=== PATIENT | male | born 1940 | race Caucasian/White ===

== ENCOUNTER 2016-11-20 15:26 | Inpatient (IN) | payer MEDICARE, OTHER ==
--- NOTE | 2016-11-20 15:59 | ER Document Report ---
ED Medical Screen (RME) - General Chief Complaint: Fever Stated Complaint: FEVER Notes: 76-year-old male patient of colectomy earlier this year for polyps and diverticulitis. He developed postop abscess and then later October had CT-guided abscess drainage. Discharged from the hospital on 10/30/2016. Now with 2 day history of urinary incontinence and onset today of fever and chills. He denies any new pain in his abdomen or pelvis. I have greeted and performed a rapid initial assessment of this patient. A comprehensive ED assessment and evaluation of the patient, analysis of test results and completion of the medical decision making process will be conducted by additional ED providers. TRAVEL OUTSIDE OF THE [place] IN LAST 30 DAYS: No - Related Data Allergies/Adverse Reactions: Penicillins Allergy (Verified 11/20/16 15:54) Past Medical History Renal/ Medical History: Denies: Hx Peritoneal Dialysis Physical Exam - Vital signs Vitals: Temp Pulse Resp BP Pulse Ox 99.8 F 110 H 22 H 136/84 H 95 11/20/16 15:35 11/20/16 15:35 11/20/16 15:35 11/20/16 15:35 11/20/16 15:35 Course - Vital Signs Vital signs: Temp Pulse Resp BP Pulse Ox 99.8 F 110 H 22 H 136/84 H 95 11/20/16 15:35 11/20/16 15:35 11/20/16 15:35 11/20/16 15:35 11/20/16 15:35
[2016-11-20 16:56] LABS: HEMATOCRIT 33.6 % (37.9-51.0); HEMOGLOBIN 11.3 g/dL (13.5-17.0); HGB HCT DIFFERENCE 0.3; MEAN CORPUSCULAR HGB CONC 33.5 g/dL (32.0-36.0); MEAN CORPUSCULAR VOLUME 84 fl (80-97); RED BLOOD COUNT 4.02 10^6/uL (4.35-5.55); RED CELL DISTRIBUTION WIDTH 16.3 % (11.5-14.0); WHITE BLOOD COUNT 16.3 10^3/uL (4.0-10.5)
[2016-11-20 16:58] LABS: PROTHROMBIN TIME 29.1 SEC (11.4-15.4)
[2016-11-20 16:59] LABS: APPEARANCE,URINE CLOUDY; BILIRUBIN,URINE NEGATIVE (NEGATIVE); GLUCOSE, URINE 50 mg/dL (NEGATIVE); KETONES,URINE NEGATIVE (NEGATIVE); LEUKOCYTE ESTERASE,URINE LARGE (NEGATIVE); NITRITE,URINE POSITIVE (NEGATIVE); PROTEIN,URINE 100 mg/dL (NEGATIVE); URINE SPECIFIC GRAVITY 1.019; UROBILINOGEN,URINE NEGATIVE mg/dL (<2.0)
[2016-11-20] MEDS ORDERED: NORMAL SALINE 1000 ML 1,000 ML IV ONE (17:10)
--- NOTE | 2016-11-20 17:13 | ER Document Report ---
ED General - General Chief Complaint: Fever Stated Complaint: FEVER Notes: Patient says he's been feeling chills and his temperature has been elevated since about noon today. Temperature is gone up as high as 101. Patient has no other symptoms except sweating heavily. He traveled here from [place] in a 2 day trip, arriving Thursday. Since then, he has felt tired but no other symptoms. Patient underwent a colectomy on September 26 for removal of polyps and diverticulosis/diverticulitis. He developed an abscess and had a drainage tube placed in the right abdomen on October 22. He was treated with antibiotics as well. He was felt to be doing well enough that the drainage tube was removed and the antibiotics were stopped on October 30. He has not had any significant nausea or vomiting. Has had diarrhea with the diverticulitis over the years. Has not seen any blood in his stools. Patient has had some urinary incontinence last night and the night before. No cold or cough or chest congestion. TRAVEL OUTSIDE OF THE [place] IN LAST 30 DAYS: No - Related Data Allergies/Adverse Reactions: Penicillins Allergy (Verified 11/23/16 02:38) swelling Home Medications: Current Home Medications Aspirin [Aspirin 81 mg Chewable Tablet] 81 mg PO DAILY 11/20/16 [History] Atorvastatin Calcium [Lipitor 20 mg Tablet] 20 mg PO DAILY 11/20/16 [History] Digoxin [Lanoxin] 250 mcg PO DAILY 11/20/16 [History] Exenatide [Byetta] 10 mcg SUBCUT BIDACBS 11/20/16 [History] Finasteride [Proscar 5 mg Tablet] 5 mg PO DAILY 11/20/16 [History] Lisinopril [Prinivil] 20 mg PO DAILY 11/20/16 [History] Metformin HCl [Glucophage] 1,000 mg PO BID 11/20/16 [History] Metoprolol Tartrate [Lopressor 25 mg Tablet] 25 mg PO Q12 11/20/16 [History] Multivitamin [Tab-A-Sean (Multiple Vitamin) Tablet] 1 tab PO DAILY 11/20/16 [ History] Quetiapine Fumarate [Seroquel Xr] 150 mg PO QHS 11/20/16 [History] Venlafaxine HCl ER [Effexor Xr 75 mg Cap.sr] 75 mg PO DAILY 11/20/16 [History] Warfarin Sodium [Coumadin 5 mg Tablet] 5 mg PO QHS 11/20/16 [History] Past Medical History - Social History Smoking Status: Unknown if Ever Smoked Cigarette use (# per day): No Family History: Reviewed & Not Pertinent Patient has suicidal ideation: No Patient has homicidal ideation: No - Past Medical History Cardiac Medical History: Reports: Hx Atrial Fibrillation, Hx Hypercholesterolemia, Hx Hypertension Endocrine Medical History: Reports: Hx Diabetes Mellitus Type 2 GI Medical History: Reports: Hx Diverticulitis Past Surgical History: Reports: Other - Colectomy, September 26 Review of Systems - Review of Systems Notes: REVIEW OF SYSTEMS: CONSTITUTIONAL : See history of present illness. Has fever and chills. EENT: Denies eye, ear, nose or mouth or throat pain or other symptoms. CARDIOVASCULAR: Denies chest pain. RESPIRATORY: Denies cough, chest congestion, or shortness of breath. GASTROINTESTINAL: Denies abdominal pain or nausea, vomiting, or diarrhea. GENITOURINARY: Denies difficulty or painful urinating, urinary frequency, blood in urine. 2 episodes of urinary incontinence. MUSCULOSKELETAL: Denies back or neck pain. Denies joint pain or swelling. SKIN: Denies rash or skin lesions. NEUROLOGICAL: Denies LOC or altered mental status. Denies headache. Denies sensory loss or motor deficits. ALL OTHER SYSTEMS REVIEWED AND NEGATIVE. Physical Exam - Vital signs Vitals: Temp Pulse Resp BP Pulse Ox 99.8 F 110 H 22 H 136/84 H 100 11/20/16 15:31 11/20/16 15:31 11/20/16 15:31 11/20/16 15:31 11/20/16 15:31 Interpretation: Normal, Tachycardic - Slight. No: Hypoxic - Notes Notes: PHYSICAL EXAMINATION: GENERAL: Well-appearing, in no acute distress. Moderately diaphoretic. Vital signs are all normal except for heart rate of 110. O2 sat 95%. HEAD: Atraumatic, normocephalic.s. NECK: Normal range of motion, supple. LUNGS: Breath sounds clear and equal bilaterally. HEART: Regular rate and rhythm without murmurs. ABDOMEN: Soft, nontender. No guarding or rebound. Scarring from previous laparoscopic surgery entry sites. BACK: No tenderness throughout entire back. No CVA percussion tenderness on either side. EXTREMITIES: Normal range of motion without pain. NEUROLOGICAL: Normal speech, normal gait. Normal sensory, motor, and reflex exams. Awake, alert, and oriented x3. Cranial nerves normal. PSYCH: Normal mood, normal affect. SKIN: Warm, dry, no rashes. Course - Re-evaluation Re-evalutation: 11/20/16 19:08 Lab results reviewed. Patient appears to have a urinary infection. 1 g of Rocephin IV was ordered. Plan to talk with the hospitalist about admitting patient. - Vital Signs Vital signs: Temp Pulse Resp BP Pulse Ox 98.2 F 85 17 153/92 H 99 11/23/16 11:17 11/23/16 11:17 11/23/16 11:17 11/23/16 11:17 11/23/16 11:17 - Laboratory Result Diagrams: 11/22/16 13:55 11/20/16 16:15 Laboratory results interpreted by me: 11/20/16 11/20/16 11/20/16 16:15 16:15 16:15 WBC 16.3 H RBC 4.02 L Hgb 11.3 L Hct 33.6 L RDW 16.3 H Seg Neuts % (Manual) 92 H Band Neutrophils % 1 L Lymphocytes % (Manual) 3 L Monocytes % (Manual) Metamyelocytes % 1 H Abs Neuts (Manual) 15.3 H PT 29.1 H Sodium 134.0 L Chloride 93 L Glucose 217 H POC Glucose Lactic Acid Direct Bilirubin 0.5 H Urine Protein Urine Glucose (UA) Urine Blood Urine Nitrite Ur Leukocyte Esterase 11/20/16 11/20/16 11/21/16 16:15 19:25 00:05 WBC RBC Hgb Hct RDW Seg Neuts % (Manual) Band Neutrophils % Lymphocytes % (Manual) Monocytes % (Manual) Metamyelocytes % Abs Neuts (Manual) PT Sodium Chloride Glucose POC Glucose Lactic Acid 3.4 H 12.8 H Direct Bilirubin Urine Protein 100 H Urine Glucose (UA) 50 H Urine Blood MODERATE H Urine Nitrite POSITIVE H Ur Leukocyte Esterase LARGE H 11/21/16 11/21/16 11/21/16 06:21 06:21 06:50 WBC 24.3 H RBC 3.50 L Hgb 9.7 L Hct 29.2 L RDW 16.0 H Seg Neuts % (Manual) 90 H Band Neutrophils % Lymphocytes % (Manual) 3 L Monocytes % (Manual) 2 L Metamyelocytes % Abs Neuts (Manual) 22.8 H PT 31.9 H Sodium Chloride Glucose POC Glucose 190 H Lactic Acid Direct Bilirubin Urine Protein Urine Glucose (UA) Urine Blood Urine Nitrite Ur Leukocyte Esterase 11/21/16 11/21/16 11/21/16 11:22 15:50 21:37 WBC RBC Hgb Hct RDW Seg Neuts % (Manual) Band Neutrophils % Lymphocytes % (Manual) Monocytes % (Manual) Metamyelocytes % Abs Neuts (Manual) PT Sodium Chloride Glucose POC Glucose 285 H 260 H 187 H Lactic Acid Direct Bilirubin Urine Protein Urine Glucose (UA) Urine Blood Urine Nitrite Ur Leukocyte Esterase 11/22/16 11/22/16 11/22/16 05:50 05:50 11:25 WBC RBC Hgb Hct RDW Seg Neuts % (Manual) Band Neutrophils % Lymphocytes % (Manual) Monocytes % (Manual) Metamyelocytes % Abs Neuts (Manual) PT 32.5 H Sodium Chloride Glucose POC Glucose 149 H 272 H Lactic Acid Direct Bilirubin Urine Protein Urine Glucose (UA) Urine Blood Urine Nitrite Ur Leukocyte Esterase 11/22/16 11/22/16 11/22/16 13:55 16:17 21:30 WBC 15.7 H RBC 3.36 L Hgb 9.5 L Hct 28.2 L RDW 15.9 H Seg Neuts % (Manual) 85 H Band Neutrophils % Lymphocytes % (Manual) 5 L Monocytes % (Manual) Metamyelocytes % Abs Neuts (Manual) 14.0 H PT Sodium Chloride Glucose POC Glucose 265 H 139 H Lactic Acid Direct Bilirubin Urine Protein Urine Glucose (UA) Urine Blood Urine Nitrite Ur Leukocyte Esterase 11/23/16 11/23/16 04:55 06:25 WBC RBC Hgb Hct RDW Seg Neuts % (Manual) Band Neutrophils % Lymphocytes % (Manual) Monocytes % (Manual) Metamyelocytes % Abs Neuts (Manual) PT 28.5 H Sodium Chloride Glucose POC Glucose 197 H Lactic Acid Direct Bilirubin Urine Protein Urine Glucose (UA) Urine Blood Urine Nitrite Ur Leukocyte Esterase Discharge - Discharge Clinical Impression: UTI (urinary tract infection) Qualifiers: Urinary tract infection type: acute cystitis Condition: Fair Disposition: ADMITTED INPATIENT
[2016-11-20 17:17] LABS: ALANINE AMINOTRANSFERASE 30 U/L (21-72); ALBUMIN 3.6 g/dL (3.5-5.0); ALKALINE PHOSPHATASE 103 U/L (38-126); ANION GAP 17 (5-19); ASPARTATE AMINO TRANSFERASE 26 U/L (17-59); BILIRUBIN,DIRECT 0.5 mg/dL (0.0-0.4); BLOOD UREA NITROGEN 16 mg/dL (7-20); CALCIUM 9.9 mg/dL (8.4-10.2); CARBON DIOXIDE 24 mmol/L (22-30); CHLORIDE 93 mmol/L (98-107); CREATININE RESULT 0.69 mg/dL (0.52-1.25); DIGOXIN 1.05 ng/mL (0.8-2.0); GLUCOSE 217 mg/dL (75-110); POTASSIUM 4.3 mmol/L (3.6-5.0); TOTAL PROTEIN 6.6 g/dL (6.3-8.2)
[2016-11-20 17:18] LABS: BAND NEUTROPHILS % (MANUAL) 1 % (3-5); BASOPHILS % (MANUAL) 0 % (0-2); EOSINOPHILS % (MANUAL) 0 % (0-6); LYMPHOCYTES % (MANUAL) 3 % (13-45); TOTAL CELLS COUNTED 100
[2016-11-20 17:22] LABS: ANISOCYTOSIS 1+; OVALOCYTES SLIGHT; POIKILOCYTOSIS SLIGHT; TOXIC GRANULATION SLIGHT
[2016-11-20] MEDS ORDERED: CEFTRIAXONE 1 GM/D5W RTU 50 ML IV ONE (18:27)
--- NOTE | 2016-11-20 20:06 | EKG REPORT ---
SEVERITY:- ABNORMAL ECG - ATRIAL FIBRILLATION RIGHT BUNDLE BRANCH BLOCK : Confirmed by: Olga Ta MD 20-Nov-2016 20:05:42
[2016-11-20] MEDS ORDERED: GLUCAGON,HUMAN RECOMB 1 MG INJ IM PRN (20:39)
[2016-11-20] MEDS ORDERED: DEXTROSE 40% GEL 15 GM TUBE PO PRN ×2 (20:39)
[2016-11-20] MEDS ORDERED: DEXTROSE 50%-WATER 25 GM/50 ML DISP.SYRIN IV PRN ×2 (20:39)
--- NOTE | 2016-11-20 21:04 | PDOC H&P ---
History of Present Illness Admission Date/PCP: PCP-[facility]; lives in [facility]. Patient complains of: fever History of Present Illness: ANAMARIA DEJESUS is a 76 year old male, with underlying atrial fibrillation, on Coumadin for same, mild occasional reflux, easy bruising, anxiety and depression, without suicidal or homicidal ideation, and type II diabetes mellitus, along with hyperlipidemia, who presents to the emergency room for evaluation of above complaint. Patient has been discussed with emergency room physician who evaluated the patient. He and traveled over the last 2 days from [place] to be with her mother. felt tired during that time span. However, starting at noon today, he developed a fever up to 101.0, with heavy sweating. History of Occasional mild urinary incontinence, which happened 2 today. No nausea vomiting, chest or abdominal pain. Does have underlying prostatic hypertrophy, on finasteride for same. Chronic intermittent diarrhea. He is status post segmental colectomy for removal of polyps and history of diverticulosis and diverticulitis in late September of this year. Postoperatively, developed an abscess which required insertion of a drain along with IV antibiotics. Antibiotics were completed and drain was removed on October 30 and he has done well until the above events. Currently resting quietly, stating he feels a bit better.. Laboratory results are listed in [facility] and are reviewed. No old labs available for review. X-ray summary results are listed below, with full report(s) reviewed. . EKG reviewed. No prior EKG available for review. Social history/personal habits: . No children. Retired. No use of alcohol tobacco or illicit drugs. Allergies/adverse reactions are listed in [facility] and are reviewed. Penicillin reaction occurred as a child, resulting in swelling. No problems with Rocephin in the emergency room. Home medications Home medications initially autopopulated into [employer] may not accurately reflect patient's true medications, dosages, and/or frequencies. voip network technician to reconcile medications. Unfortunately, patient uncertain of all medications/dosages/frequencies. REVIEW OF SYSTEMS: Constitutional: See history and present illness. Eyes: Wears glasses. ENT: No swallowing problems or complaints. No hearing problems or complaints. Pulmonary: No current complaints. Cardiovascular: No current complaints, including chest pain. Gastrointestinal: No current complaints, including nausea or vomiting. Skin: No current complaints, including rashes. Hematologic: Easy bruising. Neurologic: No current complaints, including numbness or tingling. Musculoskeletal: No current complaints, including painful joints. Psychiatric: Mild Anxiety depression; denies suicidal or homicidal ideation. Endocrine: No current complaints, including polyuria. Genitourinary: See history and present illness. PHYSICAL EXAMINATION: 6 feet 2 inches tall. 79.6 kg. BMI 22.5 kg/m.Temperature 97.4. Pulse 66 and regular. Blood pressure 109/52. Respirations are 18 and unlabored. 98% saturation on room air. Thin otherwise well-developed elderly male appearing approximately his stated age. Pleasant awake alert and cooperative. Mildly anxious, but no agitation. is present at his side; patient approves. Skin is warm and dry. No grossly obvious evidence of rash in areas of skin examined. No subcutaneous nodules palpated. ENT: Hearing grossly normal to normal conversation. Tongue midline on protrusion pink and slightly tacky. Eyes: No scleral icterus. Pupils equal and reactive to light at 4 mm. [place] conjunctivae. Neck is supple and nontender to gentle active range of motion and palpation. Midline trachea. No palpable thyroid nodule mass enlargement or tenderness. Lymphatic: No palpable cervical or clavicular nodes. Neck and lymphatic exams limited by patient body habitus. Psychiatric: Reasonable insight into acute and chronic medical issues. Oriented to time location and why here. Lungs: Auscultation reveals clear and equal breath sounds bilaterally. No use of accessory respiratory muscles. Cardiovascular: Heart regular rate and rhythm, without gallop murmur or rub. No carotid or abdominal aortic bruits. No ankle or pedal edema. Abdomen: soft, slightly, distended nontender with positive bowel sounds. Unable to adequately evaluate abdomen for masses or organomegaly due to distention. Extremities: Feet are warm and dry. No calf tenderness to compression. No grossly obvious visual evidence of calf swelling. Gentle manipulation of lower extremities fails to reveal any obvious evidence of injury or instability to knees hips or ankles. Neurologic: Moves upper extremities grossly normally. Patellar reflexes absent. Dorsiflexion and plantarflexion of feet 5 / 5 and symmetric. Past Medical History Cardiac Medical History: Reports: Atrial Fibrillation, Hyperlipidema, Hypertension Denies: Congestive Heart Failure, DVT, Myocardial Infarction, Pulmonary Embolism Pulmonary Medical History: Denies: Asthma, Chronic Obstructive Pulmonary Disease (COPD) Neurological Medical History: Denies: Hemorrhagic CVA, Ischemic CVA, Seizures Endocrine Medical History: Reports: Diabetes Mellitus Type 2 Denies: Diabetes Mellitus Type 1, Hyperthyroidism, Hypothyroidism Renal/ Medical History: Reports: Other - Prostatic hypertrophy GI Medical History: Reports: Diverticulitis, Gastroesophageal Reflux Disease Denies: Cirrhosis, Hepatitis, Peptic Ulcer Disease Musculoskeltal Medical History: Denies: Arthritis Skin Medical History: Reports: None Psychiatric Medical History: Reports: Depression, General Anxiety Disorder Denies: Alcohol Dependency, Substance Abuse, Tobacco Dependency Hematology: Reports: Other - Easy bruising Infectious Medical History: Denies: Hepatitis B, Hepatitis C Past Surgical History Past Surgical History: Reports: Other - Segmental Colectomy, incidental appendectomy September 26, 2016 Social History Information Source: Patient, Emergency Med Personnel, [facility] Records Lives with: Spouse/Significant other Smoking Status: Unknown if Ever Smoked Frequency of Alcohol Use: None Drugs: None - Advance Directive Resuscitation Status: Full Code Surrogate healthcare decision maker:: Family History Family History: Other - Alzheimer's disease, dementia Parental Family History Reviewed: Yes - father of Alzheimer's disease. Mother of complications of tj Children Family History Reviewed: NA Sibling(s) Family History Reviewed.: Yes - Brother is healthy Medication/Allergy Home Medications: Aspirin [Aspirin 81 mg Chewable Tablet] 81 mg PO DAILY 11/20/16 Atorvastatin Calcium [Lipitor 20 mg Tablet] 20 mg PO DAILY 11/20/16 Digoxin [Lanoxin] 250 mcg PO DAILY 11/20/16 Exenatide [Byetta] 10 mcg SUBCUT BIDACBS 11/20/16 Finasteride [Proscar 5 mg Tablet] 5 mg PO DAILY 11/20/16 Lisinopril [Prinivil] 20 mg PO DAILY 11/20/16 Metformin HCl [Glucophage] 1,000 mg PO BID 11/20/16 Metoprolol Tartrate [Lopressor 25 mg Tablet] 25 mg PO Q12 11/20/16 Multivitamin [Tab-A-Sean (Multiple Vitamin) Tablet] 1 tab PO DAILY 11/20/16 Quetiapine Fumarate [Seroquel Xr] 150 mg PO QHS 11/20/16 Venlafaxine HCl ER [Effexor Xr 75 mg Cap.sr] 75 mg PO DAILY 11/20/16 Warfarin Sodium [Coumadin 5 mg Tablet] 5 mg PO QHS 11/20/16 Allergies/Adverse Reactions: Penicillins Allergy (Verified 11/20/16 20:40) swelling Physical Exam Vital Signs: Temp Pulse Resp BP Pulse Ox 97.4 F 66 18 109/52 L 98 11/20/16 18:31 11/20/16 18:31 11/20/16 18:31 11/20/16 18:31 11/20/16 18:31 Intake & Output 11/19/16 11/20/16 11/21/16 00:59 00:59 00:59 Weight 79.6 kg Results Laboratory Results: 11/20/16 16:15 11/20/16 16:15 11/20/16 11/20/16 11/20/16 16:15 16:15 16:15 WBC 16.3 H RBC 4.02 L Hgb 11.3 L Hct 33.6 L MCV 84 MCH 28.0 MCHC 33.5 RDW 16.3 H Plt Count 250 Seg Neutrophils % Not Reportable Lymphocytes % Not Reportable Monocytes % Not Reportable Eosinophils % Not Reportable Basophils % Not Reportable Absolute Neutrophils Not Reportable Absolute Lymphocytes Not Reportable Absolute Monocytes Not Reportable Absolute Eosinophils Not Reportable Absolute Basophils Not Reportable Sodium 134.0 L Potassium 4.3 Chloride 93 L Carbon Dioxide 24 Anion Gap 17 BUN 16 Creatinine 0.69 Est GFR ( Amer) > 60 Est GFR (Non-Af Amer) > 60 Glucose 217 H Lactic Acid Calcium 9.9 Total Bilirubin 1.0 AST 26 ALT 30 Alkaline Phosphatase 103 Total Protein 6.6 Albumin 3.6 Urine Color YELLOW Urine Appearance CLOUDY Urine pH 5.0 Ur Specific Casar 1.019 Urine Protein 100 H Urine Glucose (UA) 50 H Urine Ketones NEGATIVE Urine Blood MODERATE H Urine Nitrite POSITIVE H Ur Leukocyte Esterase LARGE H Urine WBC (Auto) >182 Urine RBC (Auto) 14 Blood Type Antibody Screen 11/20/16 11/20/16 16:15 19:25 WBC RBC Hgb Hct MCV MCH MCHC RDW Plt Count Seg Neutrophils % Lymphocytes % Monocytes % Eosinophils % Basophils % Absolute Neutrophils Absolute Lymphocytes Absolute Monocytes Absolute Eosinophils Absolute Basophils Sodium Potassium Chloride Carbon Dioxide Anion Gap BUN Creatinine Est GFR ( Amer) Est GFR (Non-Af Amer) Glucose Lactic Acid 3.4 H Calcium Total Bilirubin AST ALT Alkaline Phosphatase Total Protein Albumin Urine Color Urine Appearance Urine pH Ur Specific Casar Urine Protein Urine Glucose (UA) Urine Ketones Urine Blood Urine Nitrite Ur Leukocyte Esterase Urine WBC (Auto) Urine RBC (Auto) Blood Type O NEGATIVE Antibody Screen NEGATIVE Impressions: Chest X-Ray 11/20/16 15:57 IMPRESSION: COPD. No acute findings. Assessment & Plan - Diagnosis (1) Hyponatremia Is this a current diagnosis for this admission?: Yes (2) UTI (urinary tract infection) Qualifiers: Urinary tract infection type: acute cystitis Is this a current diagnosis for this admission?: YesPlan: Blood and urine cultures. IV antibiotics. I have strongly encouraged patient not to get out of bed without notifying staff , to avoid a fall with injury. Knee high SCDs for DVT prophylaxis, ; with patient on systemic anticoagulation , no need for Lovenox or heparin at this point in time. Impression and plans were discussed with patient, , both of whom concur. Time spent in evaluation and management of patient: 61 minutes. (3) Anticoagulated Is this a current diagnosis for this admission?: YesPlan: Resume home medications as appropriate once these have been determined and reviewed. (4) Atrial fibrillation Qualifiers: Atrial fibrillation type: unspecified Qualified Code(s): I48.91 - Unspecified atrial fibrillation Is this a current diagnosis for this admission?: YesPlan: Resume home medications as appropriate once these have been determined and reviewed. (5) Diabetes mellitus type 2 in nonobese Is this a current diagnosis for this admission?: YesPlan: Cardiac diabetic diet. Accu-Cheks with appropriate sliding scale coverage. Resume home medications as appropriate once these have been determined and reviewed. (6) HLD (hyperlipidemia) Qualifiers: Hyperlipidemia type: unspecified Qualified Code(s): E78.5 - Hyperlipidemia, unspecified Is this a current diagnosis for this admission?: YesPlan: Resume home medications as appropriate once these have been determined and reviewed. - Inpatient Certification Based on my medical assessment, after consideration of the patient's comorbidities, presenting symptoms, or acuity I expect that the services needed warrant INPATIENT care.: Yes I certify that my determination is in accordance with my understanding of Medicare's requirements for reasonable and necessary INPATIENT services [42 CFR 412.3e].: Yes Medical Necessity: Need Close Monitoring Due to Risk of Patient Decompensation, Need For Continuous Telemetry Monitoring, Need for IV Antibiotics, Risk of Complication if Not Cared For in Hospital Post Hospital Care: D/C or Transfer Summary
[2016-11-20] MEDS ORDERED: WARFARIN SODIUM 5 MG TABLET PO ONE (23:45)
[2016-11-20] MEDS ORDERED: WARFARIN SODIUM 5 MG TABLET PO SCH (23:45)
[2016-11-21] MEDS: ACETAMINOPHEN 650 MG SUPP.RECT PR PRN (01:02)
[2016-11-21] MEDS ORDERED: AZTREONAM INJ 1 GM VIAL IV PRN (01:40)
[2016-11-21] MEDS ORDERED: AZTREONAM INJ 1 GM VIAL ONE (02:04)
[2016-11-21] MEDS: AZTREONAM 1 GM in DEXTROSE 5%-WATER 50 ML IV SCH ×2 (02:39→09:28)
[2016-11-21] MEDS ORDERED: AZTREONAM 1 GM in DEXTROSE 5%-WATER 50 ML IV SCH (06:00)
[2016-11-21 06:54] LABS: HEMATOCRIT 29.2 % (37.9-51.0); HEMOGLOBIN 9.7 g/dL (13.5-17.0); HGB HCT DIFFERENCE -0.1; MEAN CORPUSCULAR HEMOGLOBIN 27.8 pg (27.0-33.4); MEAN CORPUSCULAR HGB CONC 33.3 g/dL (32.0-36.0); MEAN CORPUSCULAR VOLUME 84 fl (80-97); WHITE BLOOD COUNT 24.3 10^3/uL (4.0-10.5)
[2016-11-21 07:02] LABS: PROTHROMBIN TIME 31.9 SEC (11.4-15.4)
[2016-11-21 07:38] LABS: BAND NEUTROPHILS % (MANUAL) 4 % (3-5); BASOPHILS % (MANUAL) 0 % (0-2); EOSINOPHILS % (MANUAL) 0 % (0-6); LYMPHOCYTES % (MANUAL) 3 % (13-45); TOTAL CELLS COUNTED 100
[2016-11-21 07:40] LABS: ANISOCYTOSIS 1+; HYPOCHROMASIA SLIGHT; OVALOCYTES SLIGHT; POIKILOCYTOSIS SLIGHT; TOXIC GRANULATION SLIGHT
[2016-11-21] MEDS: EXENATIDE INJ 10 MCG/0.04 ML 2.4 ML PEN.INJCTR SUBCUT SCH ×2 (08:50→16:34)
[2016-11-21] MEDS: INSULIN LISPRO 100 UNIT/ML 3 ML VIAL SUBCUT PRN ×4 (08:50→22:03)
[2016-11-21] MEDS: ASPIRIN 81 MG TABLET, CHEWABLE PO SCH (09:25)
[2016-11-21] MEDS: VENLAFAXINE HCL 75 MG CAP.SR.24H PO SCH (09:26)
[2016-11-21] MEDS: MULTIVITAMIN TABLET PO SCH (09:26)
[2016-11-21] MEDS: DIGOXIN 0.25 MG TABLET PO SCH (09:26)
[2016-11-21] MEDS: METOPROLOL TARTRATE 25 MG TABLET PO SCH ×2 (09:27→22:03)
[2016-11-21] MEDS: FINASTERIDE 5 MG TABLET PO SCH (09:27)
[2016-11-21] MEDS ORDERED: ERTAPENEM SODIUM INJ 1 GM VIAL IV SCH (14:30)
--- NOTE | 2016-11-21 14:34 | PDOC PROGRESS REPORT ---
Subjective Progress Note for:: 11/21/16 Subjective:: Patient improved this morning with bloating and abdominal discomfort better. Fever has gone down. No diarrhea. No hematuria, dysuria urgency or frequency. No shortness of breath, chest pain. Physical Exam Vital Signs: Temp Pulse Resp BP Pulse Ox 97.7 F 75 17 99/58 L 100 11/21/16 12:58 11/21/16 11:30 11/21/16 11:30 11/21/16 11:30 11/21/16 07:37 Intake & Output 11/20/16 11/21/16 11/22/16 06:59 06:59 06:59 Intake Total 1989 Output Total 300 Balance 1690 Weight 77.1 kg General appearance: PRESENT: no acute distress, cooperative Head exam: PRESENT: normocephalic Eye exam: PRESENT: EOMI Mouth exam: PRESENT: moist, neck supple Neck exam: ABSENT: JVD Respiratory exam: PRESENT: clear to auscultation edin. ABSENT: rhonchi, wheezes Cardiovascular exam: PRESENT: irregular rhythm. ABSENT: gallop GI/Abdominal exam: PRESENT: normal bowel sounds, soft. ABSENT: distended, tenderness Extremities exam: ABSENT: pedal edema Neurological exam: PRESENT: alert, awake, oriented to person, oriented to place , oriented to time, oriented to situation Skin exam: PRESENT: dry, warm. ABSENT: cyanosis Results Laboratory Results: 11/21/16 06:21 11/21/16 11/21/16 00:05 06:21 WBC 24.3 H RBC 3.50 L Hgb 9.7 L Hct 29.2 L MCV 84 MCH 27.8 MCHC 33.3 RDW 16.0 H Plt Count 192 Seg Neutrophils % Not Reportable Lymphocytes % Not Reportable Monocytes % Not Reportable Eosinophils % Not Reportable Basophils % Not Reportable Absolute Neutrophils Not Reportable Absolute Lymphocytes Not Reportable Absolute Monocytes Not Reportable Absolute Eosinophils Not Reportable Absolute Basophils Not Reportable Lactic Acid 12.8 H Impressions: Chest X-Ray 11/20/16 15:57 IMPRESSION: COPD. No acute findings. Assessment & Plan - Diagnosis (1) Sepsis Qualifiers: Sepsis type: sepsis due to unspecified organism Qualified Code(s): A41.9 - Sepsis, unspecified organism Is this a current diagnosis for this admission?: Yes (2) Hyponatremia Is this a current diagnosis for this admission?: Yes (3) UTI (urinary tract infection) Qualifiers: Urinary tract infection type: acute cystitis Qualified Code(s): N30.00 - Acute cystitis without hematuria Is this a current diagnosis for this admission?: Yes (4) Anticoagulated Is this a current diagnosis for this admission?: Yes (5) Atrial fibrillation Qualifiers: Atrial fibrillation type: unspecified Qualified Code(s): I48.91 - Unspecified atrial fibrillation Is this a current diagnosis for this admission?: Yes (6) Diabetes mellitus type 2 in nonobese Is this a current diagnosis for this admission?: Yes (7) HLD (hyperlipidemia) Qualifiers: Hyperlipidemia type: unspecified Qualified Code(s): E78.5 - Hyperlipidemia, unspecified Is this a current diagnosis for this admission?: Yes (8) Anxiety and depression Is this a current diagnosis for this admission?: Yes (9) GERD (gastroesophageal reflux disease) Qualifiers: Esophagitis presence: without esophagitis Qualified Code(s): K21.9 - Gastro-esophageal reflux disease without esophagitis Is this a current diagnosis for this admission?: Yes (10) BPH (benign prostatic hyperplasia) Qualifiers: Prostatic enlargement morphology: unspecified morphology Lower urinary tract symptom presence: presence of symptoms unspecified Qualified Code(s ): N40.0 - Benign prostatic hyperplasia without lower urinary tract symptoms Is this a current diagnosis for this admission?: Yes - Time Time Spent with patient: 25-34 minutes - Plan Summary Plan Summary: We are going to change the antibiotic to Invanz and D/C Azactam. Increase IV fluids. Recheck lactic acid in the morning. Monitor PT/INR. Follow cultures. Continue supportive care.
[2016-11-21] MEDS: NORMAL SALINE 1000 ML 1,000 ML IV PRN (15:05)
[2016-11-21] MEDS: ERTAPENEM SODIUM 1 GM in NORMAL SALINE 50 ML IV SCH (17:49)
[2016-11-21] MEDS ORDERED: (PENDING PHARMACY ID) (Quetiapine Fumarate [Seroquel Xr] 150 MG) PO SCH (22:00)
[2016-11-21] MEDS: QUETIAPINE FUMARATE 100 MG TABLET PO SCH (22:03)
[2016-11-21] MEDS: LISINOPRIL 10 MG TABLET PO SCH (22:03)
[2016-11-21] MEDS: ATORVASTATIN CALCIUM 20 MG TABLET PO SCH (22:03)
[2016-11-22] MEDS: NORMAL SALINE 1000 ML 1,000 ML IV PRN ×2 (00:43→21:25)
[2016-11-22] MEDS: ACETAMINOPHEN 650 MG SUPP.RECT PR PRN ×2 (01:47→16:24)
[2016-11-22 06:08] LABS: PROTHROMBIN TIME 32.5 SEC (11.4-15.4)
[2016-11-22] MEDS: EXENATIDE INJ 10 MCG/0.04 ML 2.4 ML PEN.INJCTR SUBCUT SCH ×2 (08:38→17:02)
[2016-11-22] MEDS: FINASTERIDE 5 MG TABLET PO SCH (09:30)
[2016-11-22] MEDS: METOPROLOL TARTRATE 25 MG TABLET PO SCH ×2 (09:30→21:25)
[2016-11-22] MEDS: ASPIRIN 81 MG TABLET, CHEWABLE PO SCH (09:30)
[2016-11-22] MEDS: VENLAFAXINE HCL 75 MG CAP.SR.24H PO SCH (09:30)
[2016-11-22] MEDS: DIGOXIN 0.25 MG TABLET PO SCH (09:30)
[2016-11-22] MEDS: MULTIVITAMIN TABLET PO SCH (09:31)
[2016-11-22 14:13] LABS: HEMATOCRIT 28.2 % (37.9-51.0); HEMOGLOBIN 9.5 g/dL (13.5-17.0); HGB HCT DIFFERENCE 0.3; MEAN CORPUSCULAR HEMOGLOBIN 28.3 pg (27.0-33.4); MEAN CORPUSCULAR HGB CONC 33.8 g/dL (32.0-36.0); MEAN CORPUSCULAR VOLUME 84 fl (80-97); RED BLOOD COUNT 3.36 10^6/uL (4.35-5.55); RED CELL DISTRIBUTION WIDTH 15.9 % (11.5-14.0); WHITE BLOOD COUNT 15.7 10^3/uL (4.0-10.5)
[2016-11-22 14:29] LABS: BAND NEUTROPHILS % (MANUAL) 4 % (3-5); BASOPHILS % (MANUAL) 1 % (0-2); EOSINOPHILS % (MANUAL) 0 % (0-6); LYMPHOCYTES % (MANUAL) 5 % (13-45); RBC MORPHOLOGY COMMENT NORMO-CYTIC/CHROMIC; TOTAL CELLS COUNTED 100
[2016-11-22] MEDS ORDERED: WARFARIN SODIUM 5 MG TABLET PO SCH (14:31)
--- NOTE | 2016-11-22 14:39 | PDOC PROGRESS REPORT ---
Subjective Progress Note for:: 11/22/16 Subjective:: Still with low-grade fever. No chills. Denies any bleeding, hematuria, rectal bleeding. No dizziness. No shortness of breath or coughing. No hematuria. History of ESBL abscess last month after the colectomy. Physical Exam Vital Signs: Temp Pulse Resp BP Pulse Ox 98.5 F 92 13 154/72 H 99 11/22/16 08:19 11/22/16 08:19 11/22/16 08:19 11/22/16 08:19 11/22/16 08:19 Intake & Output 11/21/16 11/22/16 11/23/16 06:59 06:59 06:59 Intake Total 1989 1736 360 Output Total 300 500 300 Balance 1690 1236 60 Weight 77.1 kg General appearance: PRESENT: no acute distress, cooperative Head exam: PRESENT: normocephalic Eye exam: PRESENT: EOMI Mouth exam: PRESENT: moist, neck supple Neck exam: ABSENT: JVD Respiratory exam: PRESENT: clear to auscultation edin. ABSENT: rhonchi, wheezes Cardiovascular exam: PRESENT: RRR. ABSENT: gallop GI/Abdominal exam: PRESENT: soft. ABSENT: distended, tenderness Extremities exam: ABSENT: pedal edema Neurological exam: PRESENT: alert, awake, oriented to situation Skin exam: PRESENT: dry, warm. ABSENT: cyanosis Results Laboratory Results: 11/22/16 13:55 11/22/16 11/22/16 05:50 13:55 WBC 15.7 H RBC 3.36 L Hgb 9.5 L Hct 28.2 L MCV 84 MCH 28.3 MCHC 33.8 RDW 15.9 H Plt Count 241 Seg Neutrophils % Not Reportable Lymphocytes % Not Reportable Monocytes % Not Reportable Eosinophils % Not Reportable Basophils % Not Reportable Absolute Neutrophils Not Reportable Absolute Lymphocytes Not Reportable Absolute Monocytes Not Reportable Absolute Eosinophils Not Reportable Absolute Basophils Not Reportable Lactic Acid 1.1 11/21/16 01:45 Nasophary ([facility] Only) MRSA Surveillance Culture - Final NO MRSA RECOVERED Impressions: Chest X-Ray 11/20/16 15:57 IMPRESSION: COPD. No acute findings. Assessment & Plan - Diagnosis (1) Sepsis Qualifiers: Sepsis type: sepsis due to unspecified organism Qualified Code(s): A41.9 - Sepsis, unspecified organism Is this a current diagnosis for this admission?: Yes (2) Hyponatremia Is this a current diagnosis for this admission?: Yes (3) UTI (urinary tract infection) Qualifiers: Urinary tract infection type: acute cystitis Qualified Code(s): N30.00 - Acute cystitis without hematuria Is this a current diagnosis for this admission?: Yes (4) Anticoagulated Is this a current diagnosis for this admission?: Yes (5) Atrial fibrillation Qualifiers: Atrial fibrillation type: unspecified Qualified Code(s): I48.91 - Unspecified atrial fibrillation Is this a current diagnosis for this admission?: Yes (6) Diabetes mellitus type 2 in nonobese Is this a current diagnosis for this admission?: Yes (7) HLD (hyperlipidemia) Qualifiers: Hyperlipidemia type: unspecified Qualified Code(s): E78.5 - Hyperlipidemia, unspecified Is this a current diagnosis for this admission?: Yes (8) Anxiety and depression Is this a current diagnosis for this admission?: Yes (9) GERD (gastroesophageal reflux disease) Qualifiers: Esophagitis presence: without esophagitis Qualified Code(s): K21.9 - Gastro-esophageal reflux disease without esophagitis Is this a current diagnosis for this admission?: Yes (10) BPH (benign prostatic hyperplasia) Qualifiers: Prostatic enlargement morphology: unspecified morphology Lower urinary tract symptom presence: presence of symptoms unspecified Qualified Code(s ): N40.0 - Benign prostatic hyperplasia without lower urinary tract symptoms Is this a current diagnosis for this admission?: Yes - Time Time Spent with patient: 25-34 minutes - Plan Summary Plan Summary: Culture reportedly ESBL. Official report pending. Invanz started. Continue IV hydration. Recheck WBC. Lactic acid is now normal. We will decrease warfarin as INR is trending up. We will recheck level in the morning. Follow cultures. Continue supportive care. Family reports that the patient had ESBL when he had the operation. Patient received only 5 days of antibiotic as reported. We will plan on outpatient intravenous antibiotic and PICC line placement on Thursday.
[2016-11-22] MEDS: INSULIN LISPRO 100 UNIT/ML 3 ML VIAL SUBCUT PRN (17:02)
[2016-11-22] MEDS: ERTAPENEM SODIUM 1 GM in NORMAL SALINE 50 ML IV SCH (17:03)
[2016-11-22] MEDS: QUETIAPINE FUMARATE 100 MG TABLET PO SCH (21:25)
[2016-11-22] MEDS: LISINOPRIL 10 MG TABLET PO SCH (21:25)
[2016-11-22] MEDS: ATORVASTATIN CALCIUM 20 MG TABLET PO SCH (21:25)
[2016-11-22] MEDS: WARFARIN SODIUM 2.5 MG TABLET PO SCH (21:25)
[2016-11-23] MEDS ORDERED: PHARMACY COMMUNICATION ORDER MC SCH (02:45)
[2016-11-23] MEDS ORDERED: IMIPENEM/CILASTATIN SODIUM INJ 500 MG VIAL IV ONE (05:55)
[2016-11-23 06:18] LABS: PROTHROMBIN TIME 28.5 SEC (11.4-15.4)
[2016-11-23] MEDS: IMIPENEM/CILASTATIN SODIUM 500 MG in NORMAL SALINE 100 ML IV SCH ×4 (06:26→23:51)
[2016-11-23] MEDS: EXENATIDE INJ 10 MCG/0.04 ML 2.4 ML PEN.INJCTR SUBCUT SCH ×2 (08:55→17:06)
--- NOTE | 2016-11-23 10:31 | PDOC PROGRESS REPORT ---
Subjective Progress Note for:: 11/23/16 Subjective:: The patient reportedly fell and had abrasions and forearm and small laceration in the eyebrow on the right side. Patient denies any dizziness or lightheadedness at all. Denies any focal weakness, slurring of speech, chest pain shortness of breath, nausea or vomiting, diarrhea. No syncopal episode reported. Physical Exam Vital Signs: Temp Pulse Resp BP Pulse Ox 98.0 F 96 17 178/90 H 97 11/23/16 09:33 11/23/16 09:33 11/23/16 09:33 11/23/16 09:33 11/23/16 09:33 General appearance: PRESENT: no acute distress, cooperative Head exam: PRESENT: other - Lacerated wound on the right eyebrow about 0.5 cm Eye exam: PRESENT: conjunctiva pink, EOMI, PERRLA Mouth exam: PRESENT: moist, neck supple Neck exam: ABSENT: JVD Respiratory exam: PRESENT: clear to auscultation edin. ABSENT: rhonchi, wheezes Cardiovascular exam: PRESENT: RRR. ABSENT: gallop GI/Abdominal exam: PRESENT: normal bowel sounds, soft. ABSENT: distended, tenderness Extremities exam: ABSENT: pedal edema Neurological exam: PRESENT: alert, awake, oriented to person, oriented to place , oriented to time, oriented to situation Skin exam: PRESENT: dry, warm. ABSENT: cyanosis Results Impressions: Chest X-Ray 11/20/16 15:57 IMPRESSION: COPD. No acute findings. Assessment & Plan - Diagnosis (1) Sepsis Qualifiers: Sepsis type: sepsis due to unspecified organism Qualified Code(s): A41.9 - Sepsis, unspecified organism Is this a current diagnosis for this admission?: Yes (2) Hyponatremia Is this a current diagnosis for this admission?: Yes (3) UTI (urinary tract infection) Qualifiers: Urinary tract infection type: acute cystitis Is this a current diagnosis for this admission?: Yes (4) Anticoagulated Is this a current diagnosis for this admission?: Yes (5) Atrial fibrillation Qualifiers: Atrial fibrillation type: unspecified Qualified Code(s): I48.91 - Unspecified atrial fibrillation Is this a current diagnosis for this admission?: Yes (6) Diabetes mellitus type 2 in nonobese Is this a current diagnosis for this admission?: Yes (7) HLD (hyperlipidemia) Qualifiers: Hyperlipidemia type: unspecified Qualified Code(s): E78.5 - Hyperlipidemia, unspecified Is this a current diagnosis for this admission?: Yes (8) Anxiety and depression Is this a current diagnosis for this admission?: Yes (9) GERD (gastroesophageal reflux disease) Qualifiers: Esophagitis presence: without esophagitis Qualified Code(s): K21.9 - Gastro-esophageal reflux disease without esophagitis Is this a current diagnosis for this admission?: Yes (10) BPH (benign prostatic hyperplasia) Qualifiers: Prostatic enlargement morphology: unspecified morphology Lower urinary tract symptom presence: presence of symptoms unspecified Qualified Code(s ): N40.0 - Benign prostatic hyperplasia without lower urinary tract symptoms Is this a current diagnosis for this admission?: Yes - Time Time Spent with patient: 25-34 minutes - Plan Summary Plan Summary: Change antibiotics to Primaxin. Obtain CT scan of the head, ice pack to the wounds, follow cultures, obtain CT of the abdomen and pelvis due to recent history of abdominal abscess. Hold aspirin, hold warfarin. Recheck PT/INR in the morning. We will arrange for PICC line placement.
[2016-11-23] MEDS: MULTIVITAMIN TABLET PO SCH (11:25)
[2016-11-23] MEDS: FINASTERIDE 5 MG TABLET PO SCH (11:26)
[2016-11-23] MEDS: METOPROLOL TARTRATE 25 MG TABLET PO SCH ×2 (11:26→22:01)
[2016-11-23] MEDS: DIGOXIN 0.25 MG TABLET PO SCH (11:27)
[2016-11-23] MEDS: VENLAFAXINE HCL 75 MG CAP.SR.24H PO SCH (11:27)
[2016-11-23] MEDS: ASPIRIN 81 MG TABLET, CHEWABLE PO SCH (11:34)
[2016-11-23] MEDS: INSULIN LISPRO 100 UNIT/ML 3 ML VIAL SUBCUT PRN ×3 (12:38→22:11)
[2016-11-23] MEDS: LISINOPRIL 10 MG TABLET PO SCH (22:01)
[2016-11-23] MEDS: ATORVASTATIN CALCIUM 20 MG TABLET PO SCH (22:02)
[2016-11-23] MEDS: QUETIAPINE FUMARATE 100 MG TABLET PO SCH (22:02)
[2016-11-23] MEDS: NORMAL SALINE 1000 ML 1,000 ML IV PRN (22:26)
[2016-11-24] MEDS: ACETAMINOPHEN 650 MG SUPP.RECT PR PRN (05:26)
[2016-11-24] MEDS: IMIPENEM/CILASTATIN SODIUM 500 MG in NORMAL SALINE 100 ML IV SCH ×4 (05:26→23:44)
[2016-11-24 06:52] LABS: HEMATOCRIT 26.1 % (37.9-51.0); HGB HCT DIFFERENCE 0.9; MEAN CORPUSCULAR HEMOGLOBIN 28.3 pg (27.0-33.4); MEAN CORPUSCULAR HGB CONC 34.6 g/dL (32.0-36.0); MEAN CORPUSCULAR VOLUME 82 fl (80-97); RED CELL DISTRIBUTION WIDTH 16.5 % (11.5-14.0)
[2016-11-24 07:13] LABS: PROTHROMBIN TIME 23.4 SEC (11.4-15.4)
[2016-11-24] MEDS: EXENATIDE INJ 10 MCG/0.04 ML 2.4 ML PEN.INJCTR SUBCUT SCH ×2 (08:01→16:03)
--- NOTE | 2016-11-24 09:11 | PDOC PROGRESS REPORT ---
Subjective Progress Note for:: 11/24/16 Subjective:: Patient had some loose stools, but he stated that he had it intermittently for long time. He denies any nausea or vomiting. No abdominal pain at all. Tolerating oral intake. No chills or fever. No shortness of breath or chest pain. No dizziness. No active bleeding on the forehead, and on the R arm. Physical Exam Vital Signs: Temp Pulse Resp BP Pulse Ox 97.3 F 74 17 148/82 H 100 11/24/16 07:54 11/24/16 07:54 11/24/16 07:54 11/24/16 07:54 11/24/16 07:54 Intake & Output 11/23/16 11/24/16 11/25/16 06:59 06:59 06:59 Intake Total 3661 Output Total 1600 Balance 2061 General appearance: PRESENT: no acute distress, cooperative Head exam: PRESENT: other - Right eyelid laceration stable Eye exam: PRESENT: EOMI, periorbital swelling - Minimal. Mild ecchymosis, PERRLA Mouth exam: PRESENT: moist, neck supple Neck exam: ABSENT: JVD Respiratory exam: PRESENT: clear to auscultation edin. ABSENT: rhonchi, wheezes Cardiovascular exam: PRESENT: irregular rhythm. ABSENT: gallop GI/Abdominal exam: PRESENT: normal bowel sounds, soft. ABSENT: distended, tenderness Extremities exam: PRESENT: other - Trace pretibial edema Neurological exam: PRESENT: alert, awake, oriented to situation Skin exam: PRESENT: dry, warm. ABSENT: cyanosis Results Laboratory Results: 11/24/16 06:08 11/24/16 06:08 WBC 11.0 H RBC 3.20 L Hgb 9.0 L Hct 26.1 L MCV 82 MCH 28.3 MCHC 34.6 RDW 16.5 H Plt Count 273 Impressions: Chest X-Ray 11/20/16 15:57 IMPRESSION: COPD. No acute findings. Abdomen/Pelvis CT 11/23/16 00:00 IMPRESSION: 1. Enhancement pattern typical of pyelonephritis left kidney. No evidence of abscess. 2. Small fluid collection in the surgical bed in the right lower quadrant status post partial colectomy. Head CT 11/23/16 00:00 IMPRESSION: CHRONIC CHANGES OF ATROPHY AND MICROVASCULAR ISCHEMIA. NO ACUTE PROCESS. Assessment & Plan - Diagnosis (1) Sepsis Qualifiers: Sepsis type: sepsis due to unspecified organism Qualified Code(s): A41.9 - Sepsis, unspecified organism Is this a current diagnosis for this admission?: Yes (2) Hyponatremia Is this a current diagnosis for this admission?: Yes (3) Fall Qualifiers: Encounter type: initial encounter Qualified Code(s): W19.XXXA - Unspecified fall, initial encounter Is this a current diagnosis for this admission?: Yes (4) UTI (urinary tract infection) Qualifiers: Urinary tract infection type: acute cystitis Is this a current diagnosis for this admission?: Yes (5) Anticoagulated Is this a current diagnosis for this admission?: Yes (6) Atrial fibrillation Qualifiers: Atrial fibrillation type: unspecified Qualified Code(s): I48.91 - Unspecified atrial fibrillation Is this a current diagnosis for this admission?: Yes (7) Diabetes mellitus type 2 in nonobese Is this a current diagnosis for this admission?: Yes (8) HLD (hyperlipidemia) Qualifiers: Hyperlipidemia type: unspecified Qualified Code(s): E78.5 - Hyperlipidemia, unspecified Is this a current diagnosis for this admission?: Yes (9) Anxiety and depression Is this a current diagnosis for this admission?: Yes (10) GERD (gastroesophageal reflux disease) Qualifiers: Esophagitis presence: without esophagitis Qualified Code(s): K21.9 - Gastro-esophageal reflux disease without esophagitis Is this a current diagnosis for this admission?: Yes (11) BPH (benign prostatic hyperplasia) Qualifiers: Prostatic enlargement morphology: unspecified morphology Lower urinary tract symptom presence: presence of symptoms unspecified Qualified Code(s ): N40.0 - Benign prostatic hyperplasia without lower urinary tract symptoms Is this a current diagnosis for this admission?: Yes - Time Time Spent with patient: 25-34 minutes - Plan Summary Plan Summary: Monitor hematocrit. No evidence of abscess on the abdomen. History of ESBL abscess as family and patient reports postoperatively. CT showed pyelonephritis rather than abscess. Continue current antibiotics. Follow bacterial identity and a blood culture. PICC line today and to arrange for home IV antibiotics. We will resume antiplatelet in a.m., and warfarin tonight. Recheck INR in the morning. Check stool for C. difficile.
[2016-11-24] MEDS: VENLAFAXINE HCL 75 MG CAP.SR.24H PO SCH (10:41)
[2016-11-24] MEDS: FINASTERIDE 5 MG TABLET PO SCH (10:41)
[2016-11-24] MEDS: DIGOXIN 0.25 MG TABLET PO SCH (10:42)
[2016-11-24] MEDS: MULTIVITAMIN TABLET PO SCH (10:42)
[2016-11-24] MEDS: METOPROLOL TARTRATE 25 MG TABLET PO SCH ×2 (10:43→21:35)
[2016-11-24] MEDS: INSULIN LISPRO 100 UNIT/ML 3 ML VIAL SUBCUT PRN ×3 (11:08→23:44)
[2016-11-24] MEDS: NORMAL SALINE 1000 ML 1,000 ML IV PRN (20:34)
[2016-11-24] MEDS: ATORVASTATIN CALCIUM 20 MG TABLET PO SCH (21:35)
[2016-11-24] MEDS: WARFARIN SODIUM 2.5 MG TABLET PO SCH (21:36)
[2016-11-24] MEDS: QUETIAPINE FUMARATE 100 MG TABLET PO SCH (21:36)
[2016-11-24] MEDS: LISINOPRIL 10 MG TABLET PO SCH (21:36)
[2016-11-24] MEDS: NORMAL SALINE 10 ML SDV (SCHEDULED) IV SCH (21:37)
[2016-11-25] MEDS: IMIPENEM/CILASTATIN SODIUM 500 MG in NORMAL SALINE 100 ML IV SCH ×4 (05:13→23:17)
[2016-11-25] MEDS: NORMAL SALINE 1000 ML 1,000 ML IV PRN (05:13)
[2016-11-25 06:00] LABS: PROTHROMBIN TIME 12.1 SEC (11.4-15.4)
[2016-11-25] MEDS: EXENATIDE INJ 10 MCG/0.04 ML 2.4 ML PEN.INJCTR SUBCUT SCH ×2 (08:13→16:00)
[2016-11-25] MEDS: FINASTERIDE 5 MG TABLET PO SCH (09:25)
[2016-11-25] MEDS: DIGOXIN 0.25 MG TABLET PO SCH (09:25)
[2016-11-25] MEDS: MULTIVITAMIN TABLET PO SCH (09:26)
[2016-11-25] MEDS: METOPROLOL TARTRATE 25 MG TABLET PO SCH ×2 (09:26→21:45)
[2016-11-25] MEDS: VENLAFAXINE HCL 75 MG CAP.SR.24H PO SCH (09:26)
[2016-11-25] MEDS: NORMAL SALINE 10 ML SDV (SCHEDULED) IV SCH ×2 (09:27→21:52)
[2016-11-25] MEDS: NORMAL SALINE 10 ML SDV (AFTER EACH USE) IV PRN (13:59)
[2016-11-25] MEDS: INSULIN LISPRO 100 UNIT/ML 3 ML VIAL SUBCUT PRN (16:00)
--- NOTE | 2016-11-25 18:49 | PDOC PROGRESS REPORT ---
Subjective Progress Note for:: 11/25/16 Subjective:: Denies any complaints. Physical Exam Vital Signs: Temp Pulse Resp BP Pulse Ox 97.7 F 68 17 137/78 H 100 11/25/16 15:43 11/25/16 15:43 11/25/16 15:43 11/25/16 15:43 11/25/16 15:43 Intake & Output 11/24/16 11/25/16 11/26/16 06:59 06:59 06:59 Intake Total 3661 3303 1600 Output Total 1600 2958 750 Balance 2061 345 850 General appearance: PRESENT: no acute distress Eye exam: PRESENT: conjunctiva pink. ABSENT: scleral icterus Ear exam: PRESENT: normal external ear exam Mouth exam: PRESENT: moist, tongue midline Neck exam: ABSENT: JVD Respiratory exam: PRESENT: clear to auscultation edin. ABSENT: rales, rhonchi, wheezes Cardiovascular exam: PRESENT: RRR. ABSENT: diastolic murmur, rubs, systolic murmur GI/Abdominal exam: PRESENT: normal bowel sounds, soft. ABSENT: distended, guarding, mass, organolmegaly, rebound, tenderness Extremities exam: ABSENT: calf tenderness, clubbing, pedal edema Neurological exam: PRESENT: alert, awake, oriented to person, oriented to place , oriented to time, oriented to situation, CN II-XII grossly intact. ABSENT: motor sensory deficit Psychiatric exam: PRESENT: appropriate affect Skin exam: PRESENT: dry, intact, warm. ABSENT: cyanosis, rash Results Laboratory Results: 11/24/16 06:08 Impressions: Abdomen/Pelvis CT 11/23/16 00:00 IMPRESSION: 1. Enhancement pattern typical of pyelonephritis left kidney. No evidence of abscess. 2. Small fluid collection in the surgical bed in the right lower quadrant status post partial colectomy. Head CT 11/23/16 00:00 IMPRESSION: CHRONIC CHANGES OF ATROPHY AND MICROVASCULAR ISCHEMIA. NO ACUTE PROCESS. Chest X-Ray 11/24/16 00:00 IMPRESSION: SUCCESSFUL PLACEMENT OF A 5 FR DUAL LUMEN 44 CM PICC IN THE left basilic VEIN. Interventional Vascular Procedure 11/24/16 00:00 IMPRESSION: SUCCESSFUL PLACEMENT OF A 5 FR DUAL LUMEN 44 CM PICC IN THE left basilic VEIN. PICC Line Insertion 11/24/16 00:00 IMPRESSION: SUCCESSFUL PLACEMENT OF A 5 FR DUAL LUMEN 44 CM PICC IN THE left basilic VEIN. Assessment & Plan - Diagnosis (1) Sepsis Qualifiers: Sepsis type: sepsis due to unspecified organism Qualified Code(s): A41.9 - Sepsis, unspecified organism Is this a current diagnosis for this admission?: YesPlan: Secondary to urinary tract infection. Patient is clinically improving. Growing out ESBL Escherichia coli. Will need at least 14 days of IV antibiotics. (2) UTI (urinary tract infection) Qualifiers: Urinary tract infection type: acute cystitis Is this a current diagnosis for this admission?: YesPlan: Growing out ESBL Escherichia coli. We'll continue with IV antibiotics for 14 days total. (3) Anxiety and depression Is this a current diagnosis for this admission?: Yes (4) BPH (benign prostatic hyperplasia) Qualifiers: Prostatic enlargement morphology: unspecified morphology Lower urinary tract symptom presence: presence of symptoms unspecified Qualified Code(s ): N40.0 - Benign prostatic hyperplasia without lower urinary tract symptoms Is this a current diagnosis for this admission?: Yes (5) GERD (gastroesophageal reflux disease) Qualifiers: Esophagitis presence: without esophagitis Qualified Code(s): K21.9 - Gastro-esophageal reflux disease without esophagitis Is this a current diagnosis for this admission?: Yes (6) Hyponatremia Is this a current diagnosis for this admission?: YesPlan: Improving (7) Atrial fibrillation Qualifiers: Atrial fibrillation type: unspecified Qualified Code(s): I48.91 - Unspecified atrial fibrillation Is this a current diagnosis for this admission?: YesPlan: Patient is rate control. Continue with Coumadin. (8) Diabetes mellitus type 2 in nonobese Is this a current diagnosis for this admission?: YesPlan: Continue Byetta and sliding scale insulin. (9) HLD (hyperlipidemia) Qualifiers: Hyperlipidemia type: unspecified Qualified Code(s): E78.5 - Hyperlipidemia, unspecified Is this a current diagnosis for this admission?: Yes - Time Time Spent with patient: 25-34 minutes - Inpatient Certification Medical Necessity: Need for IV Antibiotics - Plan Summary Plan Summary: If he continues to do well we'll plan on discharge to home with a PICC line and IV antibiotics for total of 14 days.
[2016-11-25] MEDS: ATORVASTATIN CALCIUM 20 MG TABLET PO SCH (21:45)
[2016-11-25] MEDS: LISINOPRIL 10 MG TABLET PO SCH (21:45)
[2016-11-25] MEDS: QUETIAPINE FUMARATE 100 MG TABLET PO SCH (21:45)
[2016-11-25] MEDS: WARFARIN SODIUM 2.5 MG TABLET PO SCH (21:53)
[2016-11-26] MEDS: IMIPENEM/CILASTATIN SODIUM 500 MG in NORMAL SALINE 100 ML IV SCH ×2 (05:44→13:25)
[2016-11-26 06:14] LABS: ABSOLUTE BASOPHILS # (AUTO) 0.1 10^3/uL (0.0-0.2); ABSOLUTE EOSINOPHILS # (AUTO) 0.2 10^3/uL (0.0-0.6); ABSOLUTE LYMPHOCYTES (AUTO) 1.2 10^3/uL (0.5-4.7); ABSOLUTE MONOCYTES (AUTO) 0.8 10^3/uL (0.1-1.4); ABSOLUTE NEUT (AUTO) 7.6 10^3/uL (1.7-8.2); EOSINOPHILS % (AUTO) 2.2 % (0-6); HEMATOCRIT 26.9 % (37.9-51.0); HGB HCT DIFFERENCE 0.1; LYMPHOCYTES % (AUTO) 11.8 % (13-45); MEAN CORPUSCULAR HEMOGLOBIN 27.9 pg (27.0-33.4); MEAN CORPUSCULAR HGB CONC 33.5 g/dL (32.0-36.0); MEAN CORPUSCULAR VOLUME 84 fl (80-97); MONOCYTES % (AUTO) 7.8 % (3-13); RED BLOOD COUNT 3.22 10^6/uL (4.35-5.55); RED CELL DISTRIBUTION WIDTH 16.4 % (11.5-14.0); SEGMENTED NEUTROPHILS % (AUTO) 77.2 % (42-78); WHITE BLOOD COUNT 9.8 10^3/uL (4.0-10.5)
[2016-11-26 06:39] LABS: ANION GAP 8 (5-19); BLOOD UREA NITROGEN 12 mg/dL (7-20); CALCIUM 8.9 mg/dL (8.4-10.2); CARBON DIOXIDE 29 mmol/L (22-30); CHLORIDE 102 mmol/L (98-107); CREATININE RESULT 0.67 mg/dL (0.52-1.25); GLUCOSE 136 mg/dL (75-110); POTASSIUM 3.7 mmol/L (3.6-5.0); SODIUM 139.2 mmol/L (137-145)
[2016-11-26] MEDS: EXENATIDE INJ 10 MCG/0.04 ML 2.4 ML PEN.INJCTR SUBCUT SCH ×2 (07:56→16:20)
[2016-11-26] MEDS: FINASTERIDE 5 MG TABLET PO SCH (09:06)
[2016-11-26] MEDS: MULTIVITAMIN TABLET PO SCH (09:06)
[2016-11-26] MEDS: ASPIRIN 81 MG TABLET, CHEWABLE PO SCH (09:06)
[2016-11-26] MEDS: VENLAFAXINE HCL 75 MG CAP.SR.24H PO SCH (09:06)
[2016-11-26] MEDS: METOPROLOL TARTRATE 25 MG TABLET PO SCH ×2 (09:06→21:14)
[2016-11-26] MEDS: DIGOXIN 0.25 MG TABLET PO SCH (09:07)
[2016-11-26] MEDS: NORMAL SALINE 10 ML SDV (SCHEDULED) IV SCH ×2 (09:08→21:16)
[2016-11-26] MEDS: NORMAL SALINE 10 ML SDV (AFTER EACH USE) IV PRN (13:26)
[2016-11-26] MEDS: INSULIN LISPRO 100 UNIT/ML 3 ML VIAL SUBCUT PRN (16:18)
--- NOTE | 2016-11-26 17:50 | PDOC PROGRESS REPORT ---
Subjective Progress Note for:: 11/26/16 Subjective:: Denies any complaints. Physical Exam Vital Signs: Temp Pulse Resp BP Pulse Ox 97.5 F 80 16 144/67 H 100 11/26/16 16:00 11/26/16 16:00 11/26/16 16:00 11/26/16 16:00 11/26/16 16:00 Intake & Output 11/25/16 11/26/16 11/27/16 06:59 06:59 06:59 Intake Total 3303 2040 Output Total 2958 2650 Balance 345 -610 General appearance: PRESENT: no acute distress Eye exam: PRESENT: conjunctiva pink. ABSENT: scleral icterus Ear exam: PRESENT: normal external ear exam Mouth exam: PRESENT: moist, tongue midline Neck exam: ABSENT: JVD Respiratory exam: PRESENT: clear to auscultation edin. ABSENT: rales, rhonchi, wheezes Cardiovascular exam: PRESENT: RRR. ABSENT: diastolic murmur, rubs, systolic murmur GI/Abdominal exam: PRESENT: normal bowel sounds, soft. ABSENT: distended, guarding, mass, organolmegaly, rebound, tenderness Extremities exam: ABSENT: calf tenderness, clubbing, pedal edema Neurological exam: PRESENT: alert, awake, oriented to person, oriented to place , oriented to time, oriented to situation, CN II-XII grossly intact. ABSENT: motor sensory deficit Psychiatric exam: PRESENT: appropriate affect Skin exam: PRESENT: other - Contusion on the right for head Results Laboratory Results: 11/26/16 06:00 11/26/16 06:00 11/26/16 11/26/16 06:00 06:00 WBC 9.8 RBC 3.22 L Hgb 9.0 L Hct 26.9 L MCV 84 MCH 27.9 MCHC 33.5 RDW 16.4 H Plt Count 366 Seg Neutrophils % 77.2 Lymphocytes % 11.8 L Monocytes % 7.8 Eosinophils % 2.2 Basophils % 1.0 Absolute Neutrophils 7.6 Absolute Lymphocytes 1.2 Absolute Monocytes 0.8 Absolute Eosinophils 0.2 Absolute Basophils 0.1 Sodium 139.2 Potassium 3.7 Chloride 102 Carbon Dioxide 29 Anion Gap 8 BUN 12 Creatinine 0.67 Est GFR ( Amer) > 60 Est GFR (Non-Af Amer) > 60 Glucose 136 H Calcium 8.9 Impressions: Abdomen/Pelvis CT 11/23/16 00:00 IMPRESSION: 1. Enhancement pattern typical of pyelonephritis left kidney. No evidence of abscess. 2. Small fluid collection in the surgical bed in the right lower quadrant status post partial colectomy. Head CT 11/23/16 00:00 IMPRESSION: CHRONIC CHANGES OF ATROPHY AND MICROVASCULAR ISCHEMIA. NO ACUTE PROCESS. Chest X-Ray 11/24/16 00:00 IMPRESSION: SUCCESSFUL PLACEMENT OF A 5 FR DUAL LUMEN 44 CM PICC IN THE left basilic VEIN. Interventional Vascular Procedure 11/24/16 00:00 IMPRESSION: SUCCESSFUL PLACEMENT OF A 5 FR DUAL LUMEN 44 CM PICC IN THE left basilic VEIN. PICC Line Insertion 11/24/16 00:00 IMPRESSION: SUCCESSFUL PLACEMENT OF A 5 FR DUAL LUMEN 44 CM PICC IN THE left basilic VEIN. Assessment & Plan - Diagnosis (1) Sepsis Qualifiers: Sepsis type: sepsis due to unspecified organism Qualified Code(s): A41.9 - Sepsis, unspecified organism Is this a current diagnosis for this admission?: YesPlan: Secondary to urinary tract infection. Patient is clinically improving. Growing out ESBL Escherichia coli. Will need IV antibiotics until December 08 (2) UTI (urinary tract infection) Qualifiers: Urinary tract infection type: acute cystitis Is this a current diagnosis for this admission?: YesPlan: Growing out ESBL Escherichia coli. We'll continue with IV antibiotics for 14 days total. (3) Anxiety and depression Is this a current diagnosis for this admission?: Yes (4) BPH (benign prostatic hyperplasia) Qualifiers: Prostatic enlargement morphology: unspecified morphology Lower urinary tract symptom presence: presence of symptoms unspecified Qualified Code(s ): N40.0 - Benign prostatic hyperplasia without lower urinary tract symptoms Is this a current diagnosis for this admission?: Yes (5) GERD (gastroesophageal reflux disease) Qualifiers: Esophagitis presence: without esophagitis Qualified Code(s): K21.9 - Gastro-esophageal reflux disease without esophagitis Is this a current diagnosis for this admission?: Yes (6) Hyponatremia Is this a current diagnosis for this admission?: YesPlan: Improving (7) Atrial fibrillation Qualifiers: Atrial fibrillation type: unspecified Qualified Code(s): I48.91 - Unspecified atrial fibrillation Is this a current diagnosis for this admission?: YesPlan: Patient is rate control. Continue with Coumadin. (8) Diabetes mellitus type 2 in nonobese Is this a current diagnosis for this admission?: YesPlan: Continue Byetta and sliding scale insulin. (9) HLD (hyperlipidemia) Qualifiers: Hyperlipidemia type: unspecified Qualified Code(s): E78.5 - Hyperlipidemia, unspecified Is this a current diagnosis for this admission?: Yes - Time Time Spent with patient: 15-24 minutes - Inpatient Certification Medical Necessity: Need for IV Antibiotics
[2016-11-26] MEDS ORDERED: ERTAPENEM SODIUM 1 GM in NORMAL SALINE 50 ML IV SCH (18:00)
[2016-11-26] MEDS: ATORVASTATIN CALCIUM 20 MG TABLET PO SCH (21:14)
[2016-11-26] MEDS: QUETIAPINE FUMARATE 100 MG TABLET PO SCH (21:14)
[2016-11-26] MEDS: WARFARIN SODIUM 2.5 MG TABLET PO SCH (21:15)
[2016-11-26] MEDS: LISINOPRIL 10 MG TABLET PO SCH (21:15)
[2016-11-27] MEDS: EXENATIDE INJ 10 MCG/0.04 ML 2.4 ML PEN.INJCTR SUBCUT SCH (08:52)
[2016-11-27 09:07] VITALS: BP 147/86
[2016-11-27] MEDS: MULTIVITAMIN TABLET PO SCH (10:06)
[2016-11-27] MEDS: METOPROLOL TARTRATE 25 MG TABLET PO SCH (10:06)
[2016-11-27] MEDS: FINASTERIDE 5 MG TABLET PO SCH (10:07)
[2016-11-27] MEDS: NORMAL SALINE 10 ML SDV (SCHEDULED) IV SCH (10:07)
[2016-11-27] MEDS: DIGOXIN 0.25 MG TABLET PO SCH (10:07)
[2016-11-27] MEDS: ASPIRIN 81 MG TABLET, CHEWABLE PO SCH (10:07)
[2016-11-27] MEDS: VENLAFAXINE HCL 75 MG CAP.SR.24H PO SCH (10:07)
--- NOTE | 2016-11-27 15:35 | PDOC DISCHARGE SUMMARY ---
General - Admit/Disc Date/PCP Admission Date/Primary Care Provider: 11/23/16 07:15 Discharge Date: 11/27/16 - Discharge Diagnosis (1) Sepsis Is this a current diagnosis for this admission?: YesSummary: Secondary to Escherichia coli ESBL from a urinary source. (2) UTI (urinary tract infection) Is this a current diagnosis for this admission?: YesSummary: With ESBL Escherichia coli (3) Anxiety and depression Is this a current diagnosis for this admission?: Yes (4) BPH (benign prostatic hyperplasia) Is this a current diagnosis for this admission?: Yes (5) GERD (gastroesophageal reflux disease) Is this a current diagnosis for this admission?: Yes (6) Hyponatremia Is this a current diagnosis for this admission?: Yes (7) Atrial fibrillation Is this a current diagnosis for this admission?: Yes (8) Diabetes mellitus type 2 in nonobese Is this a current diagnosis for this admission?: Yes (9) HLD (hyperlipidemia) Is this a current diagnosis for this admission?: Yes - Additional Information Resuscitation Status: Full Code Discharge Diet: Cardiac, Diabetic Discharge Activity: Activity As Tolerated Home Medications: Aspirin [Aspirin 81 mg Chewable Tablet] 81 mg PO DAILY 11/20/16 Atorvastatin Calcium [Lipitor 20 mg Tablet] 20 mg PO DAILY 11/20/16 Digoxin [Lanoxin] 250 mcg PO DAILY 11/20/16 Exenatide [Byetta] 10 mcg SUBCUT BIDACBS 11/20/16 Finasteride [Proscar 5 mg Tablet] 5 mg PO DAILY 11/20/16 Lisinopril [Prinivil] 20 mg PO DAILY 11/20/16 Metformin HCl [Glucophage] 1,000 mg PO BID 11/20/16 Metoprolol Tartrate [Lopressor 25 mg Tablet] 25 mg PO Q12 11/20/16 Multivitamin [Tab-A-Sean (Multiple Vitamin) Tablet] 1 tab PO DAILY 11/20/16 Quetiapine Fumarate [Seroquel Xr] 150 mg PO QHS 11/20/16 Venlafaxine HCl ER [Effexor Xr 75 mg Cap.sr] 75 mg PO DAILY 11/20/16 Warfarin Sodium [Coumadin 5 mg Tablet] 5 mg PO QHS 11/20/16 Ertapenem Sodium [Invanz Inj 1 gm Vial] 1 gm IV QPM #12 vial 11/27/16 History of Present Illness History of Present Illness: ANAMARIA DEJESUS is a 76 year old male who is virtually from [place] who is here visiting family who presented with a two-day history of fever up to 101.2. He also has had incontinence. The patient was admitted and was found to have a urinary tract infection. The patient several months ago had surgery for a partial colectomy for diverticulitis. The patient that time had consultations of infection with ESBL Escherichia coli. Hospital Course Hospital Course: 76-year-old gentleman admitted with sepsis secondary to urinary tract infection. Patient's cultures grew out Escherichia coli that was ESBL. Patient was treated with imipenem. The patient had positive blood cultures and it was felt that he needed 14 days of IV antibiotics and will be sent home on ertapenem to complete an additional 7 days of antibiotics. The patient also has atrial fibrillation which has been stable during this hospitalization. Physical Exam Vital Signs: Temp Pulse Resp BP Pulse Ox 97.7 F 84 18 147/86 H 99 11/27/16 12:34 11/27/16 12:34 11/27/16 12:34 11/27/16 12:34 11/27/16 12:34 Intake & Output 11/26/16 11/27/16 11/28/16 06:59 06:59 06:59 Intake Total 2040 2140 Output Total 2650 2650 Balance -610 -510 General appearance: PRESENT: no acute distress Eye exam: PRESENT: conjunctiva pink. ABSENT: scleral icterus Ear exam: PRESENT: normal external ear exam Mouth exam: PRESENT: moist, tongue midline Neck exam: ABSENT: JVD Respiratory exam: PRESENT: clear to auscultation edin. ABSENT: rales, rhonchi, wheezes Cardiovascular exam: PRESENT: RRR. ABSENT: diastolic murmur, rubs, systolic murmur GI/Abdominal exam: PRESENT: normal bowel sounds, soft. ABSENT: distended, guarding, mass, organolmegaly, rebound, tenderness Extremities exam: ABSENT: calf tenderness, clubbing, pedal edema Neurological exam: PRESENT: alert, awake, oriented to person, oriented to place , oriented to time, oriented to situation, CN II-XII grossly intact. ABSENT: motor sensory deficit Psychiatric exam: PRESENT: appropriate affect Skin exam: PRESENT: other - Ecchymosis on the right for head. Results Laboratory Results: 11/26/16 06:00 11/26/16 06:00 Impressions: Abdomen/Pelvis CT 11/23/16 00:00 IMPRESSION: 1. Enhancement pattern typical of pyelonephritis left kidney. No evidence of abscess. 2. Small fluid collection in the surgical bed in the right lower quadrant status post partial colectomy. Head CT 11/23/16 00:00 IMPRESSION: CHRONIC CHANGES OF ATROPHY AND MICROVASCULAR ISCHEMIA. NO ACUTE PROCESS. Chest X-Ray 11/24/16 00:00 IMPRESSION: SUCCESSFUL PLACEMENT OF A 5 FR DUAL LUMEN 44 CM PICC IN THE left basilic VEIN. Interventional Vascular Procedure 11/24/16 00:00 IMPRESSION: SUCCESSFUL PLACEMENT OF A 5 FR DUAL LUMEN 44 CM PICC IN THE left basilic VEIN. PICC Line Insertion 11/24/16 00:00 IMPRESSION: SUCCESSFUL PLACEMENT OF A 5 FR DUAL LUMEN 44 CM PICC IN THE left basilic VEIN. Qualifiers PATEINT BEING DISCHARGED WITH ANY OF THE FOLLOWING DIAGNOSIS?: No Plan Discharge Plan: Patient is discharged with home health for IV antibiotics along with routine PICC line care as well as home physical therapy. Time Spent: Greater than 30 Minutes
== END 2016-11-27 12:50 | disposition home health service (06) | DRG 872 ==
LOC: ER 15:26 → INTOOBSV 20:41 → EH 20:41 → UNDOADMIN 21:26 → EH 21:26 → 5 11-21 00:32 → OBSVTOIN 11-23 07:15
PROVIDERS: ADMIT Family Medicine; ATTEND Family Medicine
PROC: 02HV33Z Insertion of Infusion Device into Superior Vena Cava, Percutaneous Approach (ICD-10-PCS; principal; 2016-11-24)
PROC: B5181ZA Fluoroscopy of Superior Vena Cava using Low Osmolar Contrast, Guidance (ICD-10-PCS; 2016-11-24)
PROC: B548ZZA Ultrasonography of Superior Vena Cava, Guidance (ICD-10-PCS; 2016-11-24)
DX: A41.51 Sepsis due to Escherichia coli [E. coli] (principal); N39.0 Urinary tract infection, site not specified; E87.1 Hypo-osmolality and hyponatremia; N40.0 Benign prostatic hyperplasia without lower urinary tract symptoms; K21.9 Gastro-esophageal reflux disease without esophagitis; I48.91 Unspecified atrial fibrillation; E11.9 Type 2 diabetes mellitus without complications; E78.5 Hyperlipidemia, unspecified; F41.1 Generalized anxiety disorder; F32.9 Major depressive disorder, single episode, unspecified; Z79.82 Long term (current) use of aspirin; Z79.01 Long term (current) use of anticoagulants; Z79.899 Other long term (current) drug therapy; Z88.0 Allergy status to penicillin
CPT/HCPCS: 36415; 36569; 70450; 71010; 74177; 76937; 80048; 80053; 80162; 81001; 82962; 83605; 85025; 85027; 85610; 86850; 86900; 86901; 87040; 87077; 87086; 87088; 87186; 87493; 93005; 93010; 96361; 96365; 99285; G0378; G8978-GP; G8979-GP; J0696; J0743; J1335; J1642; J1815; J3490; J7030

== ENCOUNTER 2018-01-28 02:09 | Emergency (ER) | payer MEDICARE, OTHER ==
[2018-01-28] MEDS ORDERED: PROPOFOL INJ 200 MG/20 ML VIAL IV ONE (02:20)
[2018-01-28] MEDS ORDERED: PROPOFOL 1,000 MG/100 ML INFUS..BTL IV PRN (02:21)
[2018-01-28] MEDS ORDERED: ROCURONIUM BROMIDE INJ 50 MG/5 ML VIAL IV ONE (02:21)
[2018-01-28] MEDS ORDERED: ETOMIDATE INJ/PF 20 MG/10 ML SDV IV ONE (02:21)
[2018-01-28] MEDS ORDERED: FENTANYL CITRATE INJ/PF 100 MCG/2 ML AMPUL IV ONE (02:21)
--- NOTE | 2018-01-28 02:24 | ER Document Report ---
ED General - General Stated Complaint: CHEST PAIN/SHORT OF BREATH Time Seen by Provider: 01/28/18 02:19 Notes: Patient is a 77-year-old male who presents to the ER via ambulance for being unresponsive. Her history from paramedics the patient was found staggering in the hallway and then laid onto the ground and became unresponsive. Paramedics arrived his heart rate was in the 20s his blood pressure was systolically over 200. They immediately started to ventilate him and his heart rate came up to the 50s and 60s. Patient has had only fasciculation type movement of his extremities. Paramedics said he does have a slight gag therefore did not intubate him however he arrives with a oral airway in place as hyperventilating him. He is on Coumadin for atrial fibrillation. TRAVEL OUTSIDE OF THE [place] IN LAST 30 DAYS: No - Related Data Allergies/Adverse Reactions: Penicillins Allergy (Verified 01/28/18 03:58) swelling Past Medical History - Social History Smoking Status: Unknown if Ever Smoked Frequency of alcohol use: None Drug Abuse: None Family History: Reviewed & Not Pertinent - Past Medical History Cardiac Medical History: Reports: Hx Atrial Fibrillation, Hx Hypercholesterolemia, Hx Hypertension Denies: Hx Congestive Heart Failure, Hx DVT, Hx Heart Attack, Hx Pulmonary Embolism Pulmonary Medical History: Denies: Hx Asthma, Hx COPD Neurological Medical History: Denies: Hx Seizures Endocrine Medical History: Reports: Hx Diabetes Mellitus Type 2. Denies: Hx Diabetes Mellitus Type 1, Hx Hyperthyroidism, Hx Hypothyroidism Renal/ Medical History: Denies: Hx Peritoneal Dialysis GI Medical History: Reports: Hx Diverticulitis, Hx Gastroesophageal Reflux Disease. Denies: Hx Cirrhosis, Hx Hepatitis Musculoskeltal Medical History: Denies Hx Arthritis Psychiatric Medical History: Reports: Hx Depression Infectious Medical History: Denies: Hx Hepatitis Past Surgical History: Reports: Other - Colectomy, September 26 Review of Systems - Review of Systems -: Yes ROS unobtainable due to patient's medical condition - Patient is unresponsive Physical Exam - Vital signs Vitals: Resp Pulse Ox 14 100 01/28/18 02:12 01/28/18 02:12 - Notes Notes: General Appearance: Responsive. Being manually ventilated. No purposeful movement. Vitals: reviewed, See vital signs table. Head: no swelling or tenderness to the head Eyes: Pupils are equal but only sluggishly reactive to light., EOMI, Conjuctiva clear Mouth: No decreasd moisture Neck: Supple, no obvious step-offs or deformities with palpation of the neck. Lungs: No wheezing, No rales, No rhonci, No accessory muscle use, good air exchange bilaterally. Heart: Normal rate, irregular rythm, No murmur, no rub Abdomen: Normal BS, soft, No rigidity, No abdominal tenderness, No guarding, no rebound, Extremities: No purposeful movement of extremities., good pulses in all extremities, no swelling in the extremities, no edema. Skin: warm, dry, appropriate color, no rash Neuro: Patient is lying in the bed and and is only taking small hypoventilatory type respirations. Most ventilations are given via manual bag mask ventilation. No response to painful stimuli. Pupils are equal but very sluggish. Pupils are approximately 3-4 mm. Patient has very mild gag reflex on exam. Course - Re-evaluation Re-evalutation: 01/28/18 02:24 Upon arrival patient is intermittently bradycardic and hypertensive. He is completely unresponsive with eyes open. Pupils are very sluggish poorly reactive to light. I suspect patient most likely is intracranial bleed. Patient's not protecting his airway at this time. Patient is intubated with etomidate fentanyl and rocuronium. Patient will be taken straight to CT scan. 01/28/18 02:59 CT scan does confirm my suspicion of intracranial bleed. Patient has been placed on a cart of pain in his blood pressure is now 150/90. Head of bed is at 30. Ventilator set with an elevated respiratory rate. I did speak with [facility] transfer center. We did send over the CT images to find it. They said they will have a neurosurgeon look at the images and call me back immediately. Dictation of this chart was performed using voice recognition software; therefore, there may be some unintended grammatical errors. 01/28/18 03:15 I did speak with BHARAT Parada, neurolsurgicsylvain NICHOLSON at [facility]. Talked about the situation my concern that this may not be a survivable brain bleed. Her in the neurosurgery team every viewed the images. She says that this is a nonoperative brain bleed and this has not survivable. In that there is no further interventions that can be done to cause a viable outcome. I did speak with the and informed of this and she is understanding of this. She wishes to wait for his brother to arrive and then most likely will make the patient comfort care. 01/28/18 04:21 Family is at bedside. They are waiting for rest family to arrive before deciding take him off the ventilator. Patient is on the preventive only 3. He has no purposeful movement. We will turn it down to 1 to see if he has any further purposeful movement. 01/28/18 05:52 We were able to get a previous. Please did come to bedside speak with family in the morning of this sick. Family has chosen to remove him from the ventilator which I think is appropriate being that the has a brain bleed that is not compatible with life. ET tube has been removed. Nasal cannula is been placed. Avoid Versed 5 mg every hour as needed for agitation or twitching. Patient prior to taking off the ventilator later had just occasional muscle twitching and posturing type movements. Pupils were fixed and completely nonreactive to light. Patient has just slight gag reflex with removal of ET tube. His sedation the patient had it during this time was 1 mcg/kg of propofol. 01/28/18 06:09 Patient has now past. Time of is 6:08 AM. Patient has no palpable pulse. He has no respirations. Dictation of this chart was performed using voice recognition software; therefore, there may be some unintended grammatical errors. - Vital Signs Vital signs: Temp Pulse Resp BP Pulse Ox 98.4 F 112 H 18 163/89 H 100 01/28/18 03:50 01/28/18 02:20 01/28/18 05:31 01/28/18 05:31 01/28/18 05:31 - Laboratory Result Diagrams: 01/28/18 02:15 01/28/18 02:15 Laboratory results interpreted by me: 01/28/18 01/28/18 02:15 02:15 PT 28.2 H BUN 22 H Glucose 252 H - EKG Interpretation by Me Additional EKG results interpreted by me: 01/28/18 02:23 EKG is reviewed and interpreted by me. EKG shows A. fib with rate of [address] segment elevation. Patient does have what appears to be a right bundle branch block. QRS duration is prolonged. QT interval is within normal range. Right bundle branch block is consistent with previous EKG from November 20, 2016. 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
[2018-01-28 02:29] LABS: ABSOLUTE BASOPHILS # (AUTO) 0.1 10^3/uL (0.0-0.2); ABSOLUTE EOSINOPHILS # (AUTO) 0.2 10^3/uL (0.0-0.6); ABSOLUTE LYMPHOCYTES (AUTO) 2.7 10^3/uL (0.5-4.7); ABSOLUTE NEUT (AUTO) 4.7 10^3/uL (1.7-8.2); BASOPHILS % (AUTO) 0.9 % (0-2); EOSINOPHILS % (AUTO) 2.3 % (0-6); HEMATOCRIT 43.3 % (37.9-51.0); HEMOGLOBIN 14.9 g/dL (13.5-17.0); LYMPHOCYTES % (AUTO) 31.1 % (13-45); MEAN CORPUSCULAR HEMOGLOBIN 32.4 pg (27.0-33.4); MEAN CORPUSCULAR HGB CONC 34.5 g/dL (32.0-36.0); MEAN CORPUSCULAR VOLUME 94 fl (80-97); MONOCYTES % (AUTO) 11.3 % (3-13); PLATELET COUNT 179 10^3/uL (150-450); RED BLOOD COUNT 4.61 10^6/uL (4.35-5.55); RED CELL DISTRIBUTION WIDTH 13.4 % (11.5-14.0); SEGMENTED NEUTROPHILS % (AUTO) 54.4 % (42-78); TOTAL CELLS COUNTED % (AUTO) 100 %; WHITE BLOOD COUNT 8.6 10^3/uL (4.0-10.5)
[2018-01-28 02:34] LABS: PARTIAL THROMBOPLASTIN TIME 34.9 SEC (23.5-35.8)
[2018-01-28] MEDS ORDERED: NICARDIPINE HCL RTU, ISO-OS 20 MG/200 ML RTUINJ IV PRN (02:34)
[2018-01-28] MEDS ORDERED: NORMAL SALINE 250 ML IV PRN (02:35)
[2018-01-28 02:40] LABS: PROTHROMBIN TIME 28.2 SEC (11.4-15.4)
[2018-01-28 02:49] LABS: ALANINE AMINOTRANSFERASE 31 U/L (21-72); ALBUMIN 4.4 g/dL (3.5-5.0); ALKALINE PHOSPHATASE 122 U/L (38-126); ANION GAP 14 (5-19); ASPARTATE AMINO TRANSFERASE 33 U/L (17-59); BILIRUBIN,DIRECT 0.4 mg/dL (0.0-0.4); BILIRUBIN,TOTAL 0.7 mg/dL (0.2-1.3); BLOOD UREA NITROGEN 22 mg/dL (7-20); CALCIUM 9.4 mg/dL (8.4-10.2); CARBON DIOXIDE 23 mmol/L (22-30); CHLORIDE 106 mmol/L (98-107); GLUCOSE 252 mg/dL (75-110); POTASSIUM 4.2 mmol/L (3.6-5.0); SODIUM 143.3 mmol/L (137-145); TOTAL PROTEIN 7.3 g/dL (6.3-8.2)
--- NOTE | 2018-01-28 02:50 | RADIOLOGY REPORT (SQ) ---
EXAM DESCRIPTION: CT HEAD WITHOUT IV CONTRAST COMPLETED DATE/TME: 01/28/2018 02:19 EXAM DESCRIPTION: CT of the head without contrast CLINICAL HISTORY: altered mental status COMPARISON: None available TECHNIQUE: Axial CT of the head obtained from the skull apex to the skull base without contrast. FINDINGS: Acute intracranial hemorrhage with hemorrhage involving the lateral, third, and fourth ventricle. The hemorrhage appears to be centered within the brainstem without significant opacification of the suprasellar or quadrigeminal plate cisterns. No definite midline shift at this time. The ventricular system appears dilated slightly out of proportion to the sulcal spaces. A component of early hydrocephalus is possible. Scattered areas of hypodensity throughout the supratentorial white matter are nonspecific and may be related to chronic small vessel ischemic change. Mucosal thickening of the right maxillary sinus. Mastoid air cells are well aerated. No skull fracture identified. Visualized orbits and globes are unremarkable. Atherosclerotic calcification of the intracranial internal carotid arteries. Endotracheal tube and NG tube partially visualized. DLP: 1096.98 mGy-cm IMPRESSION: 1. Extensive likely intraparenchymal hemorrhage involving the brainstem with intraventricular extension with possible early hydrocephalus. Urgent finding reported to at 01/28/2018 1:50 AM CDT This exam was performed according to our departmental dose-optimization program, which includes automated exposure control, adjustment of the mA and/or kV according to patient size and/or use of iterative reconstruction technique.
--- NOTE | 2018-01-28 03:05 | RADIOLOGY REPORT (SQ) ---
EXAM DESCRIPTION: XR CHEST 1 VIEW COMPLETED DATE/TME: 01/28/2018 02:19 CLINICAL HISTORY: post intubation COMPARISON: 11/20/2016 FINDINGS: Single frontal view of the chest. NG tube tip is not well visualized. Exact location cannot be confirmed. Endotracheal tube with tip 5 cm above the vonda. Atherosclerotic calcification aortic arch. Heart is not enlarged. Low lung volumes. No consolidation, pneumothorax, or pleural effusion. No displaced rib fractures identified. Upper abdominal soft tissues are unremarkable. IMPRESSION: 1. No acute pulmonary process identified. Endotracheal tube in appropriate position.
[2018-01-28] MEDS ORDERED: MIDAZOLAM 2 MG/2 ML INJ IV PRN (05:51)
[2018-01-28 06:53] VITALS: BP 75/52
--- NOTE | 2018-01-29 00:22 | EKG REPORT ---
SEVERITY:- ABNORMAL ECG - ATRIAL FIBRILLATION, V-RATE 54-89 RBBB AND LAFB PVC : Confirmed by: Olga Ta MD 29-Jan-2018 00:22:09
== END 2018-01-28 08:46 | disposition expired ==
LOC: ER 02:09
DX: I61.3 Nontraumatic intracerebral hemorrhage in brain stem (principal); I10 Essential (primary) hypertension; E11.9 Type 2 diabetes mellitus without complications; R00.1 Bradycardia, unspecified; I48.91 Unspecified atrial fibrillation; Z79.01 Long term (current) use of anticoagulants; Z88.0 Allergy status to penicillin
CPT/HCPCS: 31500; 93005; 99291; 96375; 96365; 96366; 86900; 86901; 36415; 36430; 86850; 85025; 85610; 85730; 80053; 84484; 71045; 70450; 94660; 93010; P9017; J3490 ×3; J3010; J2704